=== PATIENT | female | born 1970 | race Caucasian/White ===

== ENCOUNTER 2016-04-04 05:44 | Observation (INO) | payer BC ==
[~2016-04-04] VITALS: Ht 165.1 cm; Wt 73.0 kg
[2016-04-04] MEDS ORDERED: SODIUM CHLORIDE 0.9% 1000ML 1,000 ML IV STA (05:58)
[2016-04-04] MEDS ORDERED: FENTANYL CITRATE INJ 50 MCG/1 ML 2 ML VIAL IV STA (05:58)
--- NOTE | 2016-04-04 06:05 | EMERGENCY ROOM VISIT NOTE ---
History Report prepared by Kamilah: Christofer Salmeron Under the Supervision of: Dr. Sundar Harris M.D. First contact with patient: 05:52 Chief Complaint: RESPIRATORY PROBLEMS Stated Complaint: CAN'T BREATHE Nursing Triage Summary: Pt reports she is having difficulty breathing and has a sharp pain underneath right breast. Hx of vein stripping in left leg last week. Hx of DVT. History of Present Illness The patient is a 46 year old female who presents to the Emergency Room with complaints of respiratory problems that began 3 hours ago. The patient woke up with pain underneath her right breath that is exacerbated with movement and breathing. This is causing her to have shortness of breath. The pain is not radiating to her shoulder or back. She denies any headache, loss of consciousness, or heart palpitations. She denies any history of gallbladder problems, stomach surgery, or stomach ulcers. She is not taking any control or steroids. She has not had a bowel movement in two days. She has had a recent left knee vein stripping surgery. She denies any recent travel or long car trips. She does have a past medical history of a blood clot in her leg that occurred five years ago. Source of History: patient Onset: 3 hours ago Position: other (lungs) Symptom Intensity: moderate Quality: other (shortness of breath) Timing: constant Associated Symptoms: + abdominal pain, + chest pain, No LOC, No back pain, No headache Review of Systems See HPI for pertinent positives & negatives. A total of 10 systems reviewed and were otherwise negative. Family History Patient reports no known family medical history. Social History Smoking Status: Former Smoker Alcohol Use: occasionally Marital Status: Housing Status: lives with family Current/Historical Medications Scheduled Aspirin (Aspirin Ec), 81 MG PO DAILY Cyanocobalamin (Vitamin B-12), 100 MCG PO DAILY Folic Acid (Folvite), 1 MG PO DAILY Multiple Vitamin (Multivitamin), 1 TAB PO DAILY Scheduled PRN Ibuprofen (Motrin), 600 MG PO Q4 PRN for Pain Allergies Uncoded Allergies: RECTAL ANETHESIA (Allergy, Severe, [place] AT AGE 8, 04/04/16) Physical Exam Vital Signs Date Time Temp Pulse Resp B/P Pulse Ox O2 Delivery O2 Flow Rate FiO2 04/04/16 06:35 98 Room Air 04/04/16 06:35 53 20 105/59 98 Room Air 04/04/16 06:34 54 2/13/17 05:49 98 Room Air 04/04/16 05:49 36.4 65 18 101/67 99 Room Air Physical Exam GENERAL: Patient is uncomfortable appearing and in moderate acute distress. HEENT: No acute trauma, normocephalic atraumatic, mucous membranes moist, no nasal congestion, no scleral icterus. NECK: No stridor, no adenopathy, no meningismus, trachea is midline. LUNGS: Dyspneic. Clear to auscultation and equal bilaterally. No wheeze, no rhonchi. HEART: Regular rate and rhythm. No murmurs, rubs, gallops appreciated. ABDOMEN: Soft, mild right upper quadrant tenderness to palpation, bowel sounds positive, no masses appreciated, no peritonitis. BACK: No midline tenderness, no CVA tenderness EXTREMITIES: Normal motion all extremities, no cyanosis, no edema. NEUROLOGIC: Alert and oriented, no acute motor or sensory deficits, no focal weakness, cranial nerves grossly intact. SKIN: No rash, no jaundice, no diaphoresis. Medical Decision & Procedures ER Provider Diagnostic Interpretation: Radiology results are stated below per my review and radiologist interpretation: CTA CHEST: Distended gallbladder. Gallbladder wall thickening. Findings may be due to acute cholecystitis. No evidence of pulmonary embolism. No aortic aneurysm. No pleural effusion. Bilateral atelectasis. Radiologist: Devi Alba M.D. Laboratory Results 04/04/16 05:55 Red Blood Count 4.44, Mean Corpuscular Volume 88.3, Mean Corpuscular Hemoglobin 31.3, Mean Corpuscular Hemoglobin Concent 35.5, Mean Platelet Volume 9.7, Neutrophils (%) (Auto) 44.6, Lymphocytes (%) (Auto) 42.9, Monocytes (%) (Auto) 8.3, Eosinophils (%) (Auto) 3.1, Basophils (%) (Auto) 0.6, Neutrophils # (Auto) 2.91, Lymphocytes # (Auto) 2.80, Monocytes # (Auto) 0.54, Eosinophils # (Auto) 0.20, Basophils # (Auto) 0.04 04/04/16 05:55 Test 04/04/16 05:55 04/04/16 05:59 White Blood Count 6.52 K/uL (4.8-10.8) Red Blood Count 4.44 M/uL (4.2-5.4) Hemoglobin 13.9 g/dL (12.0-16.0) Hematocrit 39.2 % (37-47) Mean Corpuscular Volume 88.3 fL (80-100) Mean Corpuscular Hemoglobin 31.3 pg (25-34) Mean Corpuscular Hemoglobin Concent 35.5 g/dl (32-36) Platelet Count 308 K/uL (130-400) Mean Platelet Volume 9.7 fL (7.4-10.4) Neutrophils (%) (Auto) 44.6 % Lymphocytes (%) (Auto) 42.9 % Monocytes (%) (Auto) 8.3 % Eosinophils (%) (Auto) 3.1 % Basophils (%) (Auto) 0.6 % Neutrophils # (Auto) 2.91 K/uL (1.4-6.5) Lymphocytes # (Auto) 2.80 K/uL (1.2-3.4) Monocytes # (Auto) 0.54 K/uL (0.11-0.59) Eosinophils # (Auto) 0.20 K/uL (0-0.5) Basophils # (Auto) 0.04 K/uL (0-0.2) RDW Standard Deviation 40.5 fL (36.4-46.3) RDW Coefficient of Variation 12.5 % (11.5-14.5) Immature Granulocyte % (Auto) 0.5 % Immature Granulocyte # (Auto) 0.03 K/uL (0.00-0.02) Est Creatinine Clear Calc Drug Dose 77.3 ml/min Estimated GFR () 87.2 Estimated GFR (Non- 75.2 BUN/Creatinine Ratio 10.3 (10-20) Calcium Level 8.7 mg/dl (8.5-10.1) Total Bilirubin 0.6 mg/dl (0.2-1) Direct Bilirubin 0.1 mg/dl (0-0.2) Aspartate Amino Transf (AST/SGOT) 17 U/L (15-37) Alanine Aminotransferase (ALT/SGPT) 39 U/L (12-78) Alkaline Phosphatase 89 U/L (45-117) Total Creatine Kinase 53 U/L (26-192) Creatine Kinase MB 0.6 ng/ml (0.5-3.6) Creatine Kinase MB Ratio 1.1 (0-3.0) Troponin I < 0.015 ng/ml (0-0.045) Total Protein 7.6 gm/dl (6.4-8.2) Albumin 3.6 gm/dl (3.4-5.0) Lipase 136 U/L (73-393) Bedside Hemoglobin 13.9 g/dl (12.0-16.0) Bedside Hematocrit 41 % (37-47) Bedside Sodium 141 mEq/L (135-144) Bedside Potassium 4.1 mEq/L (3.3-5.0) Bedside Chloride 103 mEq/L (101-112) Bedside Total CO2 23 mEq/l (24-31) Anion Gap 20.0 mmol/L (16-25) Bedside Blood Urea Nitrogen 9 mg/dl (7-18) Bedside Creatinine 0.9 mg/dl (0.6-1.3) Bedside Glucose (other) 99 mg/dl (70-99) Bedside Ionized Calcium (Ethan) 1.19 mmol/l (1.12-1.32) Laboratory results as reviewed by me. Medications Administered Medications (Trade) Dose Ordered Sig/Woody Route Start Time Stop Time Status Last Admin Dose Admin Fentanyl Citrate 50 mcg 50 mcg NOW STAT IV 04/04/16 05:58 04/04/16 06:00 DC 04/04/16 06:09 50 MCG Sodium Chloride (Nss 1000ml) 1,000 ml @ 75 mls/hr [id number] STAT IV 04/04/16 05:58 04/04/16 19:17 04/04/16 06:33 75 MLS/HR ECG Indication: SOB/dyspnea Rate (beats per minute): 57 Rhythm: sinus bradycardia Findings: no acute ischemic change, no ectopy ED Course 0552: The patient was evaluated in room B7. A complete history and physical exam was performed. 0558: Sodium Chloride 1000 ml @ 75 mls/hr IV, Fentanyl Citrate 50 mcg IV 0630: The patient feels much better. She declines any further pain medications. 0715: Upon reevaluation, the patient is resting. Discussed results and treatment plan with the patient. She verbalized understanding and agreement with the treatment plan. The patient will be evaluated by Dr. Weiss - General Surgery, for further management. Medical Decision Differential: PE, Cholecystitis, Gallbladder disfunction, Hepatic Disfunction, Gastritis/PUD, Renal Colic, Pancreatitis, ACS, Aortic Pathology, amongst other pathologies entertained. 46 yr old female with right lower pleuritic chest pain radiating to right mid chest/back and RUQ. She has DVT history and just had left leg vein striping surgery. Furthermore, per nurse, (and unknown to patient's daughter in room) she has breast cancer recently diagnosed. Otherwise vitals look OK. With her history clearly will need PE rule out which was done. Labs look OK. Given Fentanyl with improvement in pain. CT reveals normal pulm vasculature, though there does appear to be acute cholecystitis. Stable and feeling much improved. Mefoxin ordered. US Gallbladder ordered for further evaluation. Dr Weiss aware and will evaluate. Consults Time Called: 0700 Consulting Physician: Dr. Weiss - General Surgery Returned Call: 0710 They will be evaluating the patient for further management. Impression Primary Impression: Acute cholecystitis Scribe Attestation The scribe's documentation has been prepared under my direction and personally reviewed by me in its entirety. I confirm that the note above accurately reflects all work, treatment, procedures, and medical decision making performed by me. Departure Information Dispostion Being Evaluated By Surgeon Referrals Velma Maradiaga (PCP) Patient Instructions [facility]
[2016-04-04 06:10] LABS: BASO % 0.6 %; BASO ABS # 0.04 K/uL (0-0.2); COMPLETE YES; EOS % 3.1 %; HEMATOCRIT 39.2 % (37-47); IG% 0.5 %; LYMPH % 42.9 %; MEAN CELL VOLUME 88.3 fL (80-100); MEAN CORPUSCULAR HEMOGLOBIN 31.3 pg (25-34); MEAN CORPUSCULAR HGB CONC 35.5 g/dl (32-36); MEAN PLATELET VOLUME 9.7 fL (7.4-10.4); MONO % 8.3 %; NEUT % 44.6 %; PLATELET COUNT 308 K/uL (130-400); RED BLOOD COUNT 4.44 M/uL (4.2-5.4); WHITE BLOOD COUNT 6.52 K/uL (4.8-10.8)
[2016-04-04] MEDS ORDERED: FOLI1TAB7 PO (06:14)
[2016-04-04] MEDS ORDERED: MULTTAB58 PO (06:14)
[2016-04-04] MEDS ORDERED: ASPI81TA28 PO (06:14)
[2016-04-04] MEDS ORDERED: CYAN100T PO (06:14)
[2016-04-04 06:15] LABS: ISTAT CREATININE 0.9 mg/dl (0.6-1.3); ISTAT HEMOGLOBIN 13.9 g/dl (12.0-16.0); ISTAT IONIZED CALCIUM 1.19 mmol/l (1.12-1.32)
[2016-04-04] MEDS ORDERED: OPTIRAY 320 IV PRN (06:15)
[2016-04-04] MEDS ORDERED: IBUP-1450 PO (06:15)
[2016-04-04 06:27] LABS: ALT/SGPT 39 U/L (12-78); AST/SGOT 17 U/L (15-37); BLOOD UREA NITROGEN 9 mg/dl (7-18); BUN/CREATININE RATIO 10.3 (10-20); CALCIUM 8.7 mg/dl (8.5-10.1); CARBON DIOXIDE 25 mmol/L (21-32); CHLORIDE 107 mmol/L (98-107); CREATININE 0.92 mg/dl (0.60-1.20); GLUCOSE 92 mg/dl (70-99); POTASSIUM 4.1 mmol/L (3.5-5.1); SODIUM 141 mmol/L (136-145)
[2016-04-04 06:32] LABS: ALKALINE PHOSPHATASE 89 U/L (45-117); CKMB/CK RATIO 1.1 (0-3.0)
[2016-04-04] MEDS ORDERED: CEFOXITIN SOD 2 GM VIAL IV STA (07:16)
--- NOTE | 2016-04-04 07:29 | DIAGNOSTIC IMAGING REPORT ---
CT ANGIOGRAPHY OF THE CHEST, PULMONARY EMBOLUS PROTOCOL CLINICAL HISTORY: Right lower chest pleuritic pain. Recent surgery. History of breast cancer. COMPARISON STUDY: No previous studies for comparison. TECHNIQUE: Following IV administration of 93 mL of [id number]-[id number], helical axial images of the chest were obtained utilizing the pulmonary embolus protocol. Maximal intensity projections and sagittal and coronal reformats were viewed on an independent 3D workstation. IV contrast was administered without complication. CT DOSE: 276.14 mGy.cm FINDINGS: No pulmonary emboli are identified. There is no evidence of thoracic dissection. The size of the heart is normal. There is no pericardial effusion. No enlarged axillary, mediastinal or hilar lymph nodes are present. Linear and groundglass opacities within the lungs suggest atelectasis. There is no consolidation to suggest pneumonia. There is no pneumothorax or pleural effusion. No suspicious osseous lesions are present. A radiodensity within the upper outer quadrant right breast could reflect a biopsy clip. A 2 mm left renal calculus is noted. Visualized portions of the upper abdomen demonstrate possible gallbladder distention with equivocal gallbladder wall thickening. IMPRESSION: 1. No pulmonary emboli identified. 2. No acute findings within the chest. 3. Equivocal gallbladder distention and wall thickening, partially imaged on this exam. A right upper quadrant ultrasound could be obtained. Electronically signed by: Jim Canada M.D. 04/04/2016 7:27 AM Dictated Date/Time: 04/04/2016 7:19 AM
--- NOTE | 2016-04-04 09:09 | DIAGNOSTIC IMAGING REPORT ---
Right upper quadrant ultrasound GALLBLADDER-ABD LIMITED CLINICAL HISTORY: Cholecystitis gallstone TECHNIQUE: Ultrasound COMPARISON STUDY: None FINDINGS: Multiple gallstones within the gallbladder lumen. Normal gallbladder wall. No pericholecystic fluid. Extra hepatic common mild duct is 5 mm. Right kidney negative for hydronephrosis. IMPRESSION: Gallstones. Normal gallbladder ducts. Electronically signed by: Kevni Ventura M.D. 04/04/2016 9:08 AM Dictated Date/Time: 04/04/2016 9:07 AM
[2016-04-04] MEDS: FENTANYL CITRATE INJ 50 MCG/1 ML 2 ML VIAL IV PRN ×3 (09:10→13:37)
[2016-04-04] MEDS ORDERED: ONDANSETRON INJ 2 MG/ML 2 ML VIAL IV PRN (12:30)
[2016-04-04] MEDS ORDERED: OXYCODONE/ACETAMINOPHEN 5-325 TAB PO PRN (12:30)
[2016-04-04 13:12] VITALS: BP 125/62; PULSE 87; TEMP 36.4; O2SAT 98; Ht 165.1 cm; Wt 73.0 kg
[2016-04-04] MEDS ORDERED: IV FLUIDS COMPLETED PRN (14:00)
[2016-04-04 14:15] VITALS: BP 103/67; PULSE 53; TEMP 36.5; O2SAT 98
--- NOTE | 2016-04-04 14:21 | History and Physical ---
History & Physical Date & Time of Service: Apr 04, 2016 at 14:10 Chief Complaint: Can't Breathe Primary Care Physician: Irma Early PA-C History of Present Illness Source: patient Kandace presented to [facility] emergency department early this morning with complaint of right upper abdominal pain and difficulty breathing. States the pain started at 3 am this morning and by 5 am she was unable to take a deep breath because of the pain. Denies of any previous similar episodes of pain. Denies of any radiation of pain. Denies of any history of similar abdominal pain or issues with her gallbladder. Denies of any fever, chills, nausea, vomiting, or diarrhea. She had labs including cbc, bmp, and lfts. NO leukocytosis and LFTS and bilirubin within normal limits. She has a history of DVT about 5 years ago and recent left leg vein stripping procedure last week. She had a CT angiography of the chest which showed probable gallbladder wall distention and wall thickening. She then underwent an ultrasound which showed no gallbladder wall thickening, pericholecystic fluid, or signs of acute cholecystitis however she did have gallstones present. Family History Patient reports no known family medical history. Social History Smoking Status: Former Smoker Marital Status: Housing status: lives with family Multi-Drug Resistant Organisms History of MDRO: No Allergies Uncoded Allergies: RECTAL ANETHESIA (Allergy, Severe, [place] AT AGE 8, 04/04/16) Home Medications Scheduled Aspirin (Aspirin Ec), 81 MG PO DAILY Cyanocobalamin (Vitamin B-12), 100 MCG PO DAILY Folic Acid (Folvite), 1 MG PO DAILY Multiple Vitamin (Multivitamin), 1 TAB PO DAILY Scheduled PRN Ibuprofen (Motrin), 600 MG PO Q4 PRN for Pain Review of Systems Constitutional: No chills, No fever, No sweats Respiratory: + dyspnea on exertion, + shortness of breath (on presentation to the emergency room, resolved now.) Cardiovascular: No chest pain, No orthopnea Abdomen: + pain (RUQ), No diarrhea, No nausea, No vomiting Neurologic: No weakness Endocrine: No fatigue Physical Exam Vital Signs Date Time Temp Pulse Resp B/P Pulse Ox O2 Delivery O2 Flow Rate FiO2 04/04/16 13:37 102/62 04/04/16 13:12 36.4 87 18 125/62 98 Room Air 04/04/16 12:06 125/62 04/04/16 11:04 56 18 106/68 04/04/16 09:14 101/71 04/04/16 06:35 98 Room Air 04/04/16 06:35 53 20 105/59 98 Room Air 04/04/16 06:34 54 04/04/16 05:49 98 Room Air 04/04/16 05:49 36.4 65 18 101/67 99 Room Air General Appearance: WD/WN, no apparent distress Head: normocephalic, atraumatic Eyes: normal inspection, sclerae normal ENT: hearing grossly normal Neck: supple, no adenopathy Respiratory/Chest: chest non-tender, lungs clear, normal breath sounds, no respiratory distress, no accessory muscle use Cardiovascular: regular rate, rhythm, no edema, no murmur Abdomen/GI: soft, no organomegaly, + tenderness (RUQ, positive quinteros's sign), + guarding (RUQ) Back: normal inspection, no CVA tenderness, no muscle spasm Extremities/Musculoskelatal: normal inspection Neurologic/Psych: alert, normal mood/affect, oriented x 3 Skin: normal color, warm/dry, no rash Diagnostics Laboratory Results Results Past 24 Hours Test 04/04/16 05:55 04/04/16 05:59 Range/Units White Blood Count 6.52 4.8-10.8 K/uL Red Blood Count 4.44 4.2-5.4 M/uL Hemoglobin 13.9 12.0-16.0 g/dL Hematocrit 39.2 37-47 % Mean Corpuscular Volume 88.3 80-100 fL Mean Corpuscular Hemoglobin 31.3 25-34 pg Mean Corpuscular Hemoglobin Concent 35.5 32-36 g/dl Platelet Count 308 130-400 K/uL Mean Platelet Volume 9.7 7.4-10.4 fL Neutrophils (%) (Auto) 44.6 % Lymphocytes (%) (Auto) 42.9 % Monocytes (%) (Auto) 8.3 % Eosinophils (%) (Auto) 3.1 % Basophils (%) (Auto) 0.6 % Neutrophils # (Auto) 2.91 1.4-6.5 K/uL Lymphocytes # (Auto) 2.80 1.2-3.4 K/uL Monocytes # (Auto) 0.54 0.11-0.59 K/uL Eosinophils # (Auto) 0.20 0-0.5 K/uL Basophils # (Auto) 0.04 0-0.2 K/uL RDW Standard Deviation 40.5 36.4-46.3 fL RDW Coefficient of Variation 12.5 11.5-14.5 % Immature Granulocyte % (Auto) 0.5 % Immature Granulocyte # (Auto) 0.03 0.00-0.02 K/uL Sodium Level 141 136-145 mmol/L Potassium Level 4.1 3.5-5.1 mmol/L Chloride Level 107 98-107 mmol/L Carbon Dioxide Level 25 21-32 mmol/L Anion Gap 9.0 20.0 16-25 mmol/L Blood Urea Nitrogen 9 7-18 mg/dl Creatinine 0.92 0.60-1.20 mg/dl Est Creatinine Clear Calc Drug Dose 77.3 ml/min Estimated GFR () 87.2 Estimated GFR (Non- 75.2 BUN/Creatinine Ratio 10.3 10-20 Random Glucose 92 70-99 mg/dl Calcium Level 8.7 8.5-10.1 mg/dl Total Bilirubin 0.6 0.2-1 mg/dl Direct Bilirubin 0.1 0-0.2 mg/dl Aspartate Amino Transf (AST/SGOT) 17 15-37 U/L Alanine Aminotransferase (ALT/SGPT) 39 12-78 U/L Alkaline Phosphatase 89 45-117 U/L Total Creatine Kinase 53 26-192 U/L Creatine Kinase MB 0.6 0.5-3.6 ng/ml Creatine Kinase MB Ratio 1.1 0-3.0 Troponin I < 0.015 0-0.045 ng/ml Total Protein 7.6 6.4-8.2 gm/dl Albumin 3.6 3.4-5.0 gm/dl Lipase 136 73-393 U/L Bedside Hemoglobin 13.9 12.0-16.0 g/dl Bedside Hematocrit 41 37-47 % Bedside Sodium 141 135-144 mEq/L Bedside Potassium 4.1 3.3-5.0 mEq/L Bedside Chloride 103 101-112 mEq/L Bedside Total CO2 23 24-31 mEq/l Bedside Blood Urea Nitrogen 9 7-18 mg/dl Bedside Creatinine 0.9 0.6-1.3 mg/dl Bedside Glucose (other) 99 70-99 mg/dl Bedside Ionized Calcium (Ethan) 1.19 1.12-1.32 mmol/l Diagnostic Radiology US showing gallstones no gallbladder wall thickening, no pericholecystic fluid. NO evidence of acute cholecystitis CTA of the chest showed probable gallbladder wall thickening or gallbladder distention, no evidence of pulmonary embolism. Impression Assessment and Plan RUQ abdominal pain Symptomatic Cholelithiasis - afebrile - no leukocytosis - CMP and Bilirubin within normal limits Plan: Will admit patient for observation to see if her pain improves If she continues to have pain or pain increases will plan on laparoscopic cholecystectomy tomorrow Start IV fluids, IV pain medication, IV cefoxitin, and IV Zofran May have clear liquids NPO after midnight Advanced Directives Existing Living Will: No Existing Power of Sfdc Architect: No VTE Prophylaxis VTE Risk Assessment Done? Y/N: Yes Risk Level: Low Given or contraindicated: SCD's Social Service Consult None Apply Note I have 9nterviewed and examined this patient an I agree with the above note. She has cholelithiasis and RUQ pain with a normal WBC, LFT and no other abnormalities of the gallbladder on ultrasound. Offered surgery versus operations and she has chose observation.
[2016-04-04] MEDS: CEFOXITIN IV 2,000 MG in DEXTROSE 5% 50ML 50 ML IV SCH ×2 (15:38→22:02)
[2016-04-04] MEDS: D5W AND 1/2NSS + 20MEQ KCL 1,000 ML IV SCH (15:38)
[2016-04-04] MEDS: MoRPHine SULFATE 4 MG/ML 1 ML CARP\\VIAL IV PRN ×2 (15:39→20:12)
[2016-04-04 23:50] VITALS: BP 88/55; PULSE 53; TEMP 36.7; O2SAT 96
[2016-04-05] VITALS (9 sets, daily range): BP systolic 92–107; BP diastolic 54–70; PULSE 51–68; TEMP 36.5–36.9; O2SAT 96–98
[2016-04-05] MEDS ORDERED: ACETAMINOPHEN 325 MG TAB PO PRN (00:30)
[2016-04-05] MEDS ORDERED: NURSING VERBAL MED ORDER ONE (00:30)
[2016-04-05] MEDS: CEFOXITIN IV 2,000 MG in DEXTROSE 5% 50ML 50 ML IV SCH ×4 (02:30→20:33)
[2016-04-05] MEDS: D5W AND 1/2NSS + 20MEQ KCL 1,000 ML IV SCH ×2 (02:31→19:18)
[2016-04-05 07:09] LABS: HEMATOCRIT 36.8 % (37-47); MEAN CELL VOLUME 91.3 fL (80-100); MEAN CORPUSCULAR HEMOGLOBIN 30.8 pg (25-34); MEAN CORPUSCULAR HGB CONC 33.7 g/dl (32-36); PLATELET COUNT 280 K/uL (130-400); RED BLOOD COUNT 4.03 M/uL (4.2-5.4); WHITE BLOOD COUNT 5.13 K/uL (4.8-10.8)
[2016-04-05] MEDS: MoRPHine SULFATE 4 MG/ML 1 ML CARP\\VIAL IV PRN ×5 (07:09→23:40)
[2016-04-05 07:36] LABS: BUN/CREATININE RATIO 7.2 (10-20); CALCIUM 8.6 mg/dl (8.5-10.1); CREATININE 0.9 mg/dl (0.60-1.20)
[2016-04-05 07:39] LABS: ALB/GLOB RATIO 0.9 (0.9-2)
--- NOTE | 2016-04-05 08:10 | Surgery Progress Note ---
Surgery Progress Note Date of Service Apr 05, 2016. Subjective Post OP Day: HD # 1 + diet (tolerated clear liquids), + nausea, No SOB, No chest pain, No vomiting Objective Vital Signs: Date Time Temp Pulse Resp B/P Pulse Ox O2 Delivery O2 Flow Rate FiO2 04/05/16 00:10 Room Air 04/05/16 00:10 103/68 04/04/16 23:50 36.7 53 16 88/55 96 Room Air 04/04/16 15:30 Room Air 04/04/16 14:15 36.5 53 18 103/67 98 Room Air 04/04/16 14:15 98 Room Air 04/04/16 13:37 102/62 04/04/16 13:12 36.4 87 18 125/62 98 Room Air 04/04/16 12:06 125/62 04/04/16 11:04 56 18 106/68 04/04/16 09:14 101/71 General Appearance: WD/WN, no apparent distress Head: normocephalic, atraumatic Respiratory/Chest: chest non-tender, lungs clear, normal breath sounds, no respiratory distress, no accessory muscle use Cardiovascular: regular rate, rhythm, no murmur Abdomen: non distended, soft, no organomegaly, + guarding (RUQ), + rebound (RUQ ), + tenderness (RUQ, + Duran's sign) Extremities: normal range of motion Laboratory Results: Results Past 24 Hours Test 04/05/16 06:40 Range/Units White Blood Count 5.13 4.8-10.8 K/uL Red Blood Count 4.03 4.2-5.4 M/uL Hemoglobin 12.4 12.0-16.0 g/dL Hematocrit 36.8 37-47 % Mean Corpuscular Volume 91.3 80-100 fL Mean Corpuscular Hemoglobin 30.8 25-34 pg Mean Corpuscular Hemoglobin Concent 33.7 32-36 g/dl RDW Standard Deviation 42.5 36.4-46.3 fL RDW Coefficient of Variation 12.7 11.5-14.5 % Platelet Count 280 130-400 K/uL Mean Platelet Volume 10.0 7.4-10.4 fL Sodium Level 142 136-145 mmol/L Potassium Level 4.0 3.5-5.1 mmol/L Chloride Level 107 98-107 mmol/L Carbon Dioxide Level 25 21-32 mmol/L Anion Gap 10.0 3-11 mmol/L Blood Urea Nitrogen 7 7-18 mg/dl Creatinine 0.90 0.60-1.20 mg/dl Est Creatinine Clear Calc Drug Dose 79.0 ml/min Estimated GFR () 89.5 Estimated GFR (Non- 77.2 BUN/Creatinine Ratio 7.2 10-20 Random Glucose 87 70-99 mg/dl Calcium Level 8.6 8.5-10.1 mg/dl Total Bilirubin 0.7 0.2-1 mg/dl Aspartate Amino Transf (AST/SGOT) 14 15-37 U/L Alanine Aminotransferase (ALT/SGPT) 29 12-78 U/L Alkaline Phosphatase 79 45-117 U/L Total Protein 6.7 6.4-8.2 gm/dl Albumin 3.1 3.4-5.0 gm/dl Globulin 3.6 2.5-4.0 gm/dl Albumin/Globulin Ratio 0.9 0.9-2 Assessment & Plan Symptomatic Cholelithiasis - RUQ pain + Duran's sign - no leukocytosis - CBC, CMP including LFTS and Bilirubin within normal limits - Pain moderate 6/10 with pain medication Plan:
--- NOTE | 2016-04-05 08:37 | Surgery Progress Note ---
Surgery Progress Note Date of Service Apr 05, 2016. Subjective No nausea, No vomiting Pain persists and is unchanged in intensity. Objective Vital Signs: Date Time Temp Pulse Resp B/P Pulse Ox O2 Delivery O2 Flow Rate FiO2 04/05/16 07:00 36.9 51 16 97/63 97 Room Air 04/05/16 00:10 Room Air 04/05/16 00:10 103/68 04/04/16 23:50 36.7 53 16 88/55 96 Room Air 04/04/16 15:30 Room Air 04/04/16 14:15 36.5 53 18 103/67 98 Room Air 04/04/16 14:15 98 Room Air 04/04/16 13:37 102/62 04/04/16 13:12 36.4 87 18 125/62 98 Room Air 04/04/16 12:06 125/62 04/04/16 11:04 56 18 106/68 04/04/16 09:14 101/71 Abdomen: normal bowel sounds, soft, + tenderness Laboratory Results: Results Past 24 Hours Test 04/05/16 06:40 Range/Units White Blood Count 5.13 4.8-10.8 K/uL Red Blood Count 4.03 4.2-5.4 M/uL Hemoglobin 12.4 12.0-16.0 g/dL Hematocrit 36.8 37-47 % Mean Corpuscular Volume 91.3 80-100 fL Mean Corpuscular Hemoglobin 30.8 25-34 pg Mean Corpuscular Hemoglobin Concent 33.7 32-36 g/dl RDW Standard Deviation 42.5 36.4-46.3 fL RDW Coefficient of Variation 12.7 11.5-14.5 % Platelet Count 280 130-400 K/uL Mean Platelet Volume 10.0 7.4-10.4 fL Sodium Level 142 136-145 mmol/L Potassium Level 4.0 3.5-5.1 mmol/L Chloride Level 107 98-107 mmol/L Carbon Dioxide Level 25 21-32 mmol/L Anion Gap 10.0 3-11 mmol/L Blood Urea Nitrogen 7 7-18 mg/dl Creatinine 0.90 0.60-1.20 mg/dl Est Creatinine Clear Calc Drug Dose 79.0 ml/min Estimated GFR () 89.5 Estimated GFR (Non- 77.2 BUN/Creatinine Ratio 7.2 10-20 Random Glucose 87 70-99 mg/dl Calcium Level 8.6 8.5-10.1 mg/dl Total Bilirubin 0.7 0.2-1 mg/dl Aspartate Amino Transf (AST/SGOT) 14 15-37 U/L Alanine Aminotransferase (ALT/SGPT) 29 12-78 U/L Alkaline Phosphatase 79 45-117 U/L Total Protein 6.7 6.4-8.2 gm/dl Albumin 3.1 3.4-5.0 gm/dl Globulin 3.6 2.5-4.0 gm/dl Albumin/Globulin Ratio 0.9 0.9-2 Assessment & Plan Pain has not resolved with conservative management. We again discussed removing her gallbladder and she has agreed. I explained the laparoscopic procedure and the possible need to convert to an open procedure. I explained the possible complications and answered her questions. She has signed a consent form.
[2016-04-05] MEDS ORDERED: GLYCOPYRROLATE INJ 0.2 MG/ML VIAL ONE (13:43)
[2016-04-05] MEDS ORDERED: ONDANSETRON INJ 2 MG/ML 2 ML VIAL ONE ×2 (13:43→13:44)
[2016-04-05] MEDS ORDERED: NEOSTIGMINE METHYLSULFATE 5 MG/5 ML SYR ONE (13:43)
[2016-04-05] MEDS ORDERED: ROCURONIUM BROMIDE 10 MG/ML 5 ML VIAL ONE (13:43)
[2016-04-05] MEDS ORDERED: FENTANYL CITRATE INJ 50 MCG/1 ML 2 ML VIAL ONE (13:43)
[2016-04-05] MEDS ORDERED: MIDAZOLAM HCL 1 MG/ML 2ML VIAL ONE ×2 (13:43→17:04)
[2016-04-05] MEDS ORDERED: LIDOCAINE HCL 2% 2 ML VIAL (20MG/ML) ONE (13:43)
[2016-04-05] MEDS ORDERED: PROPOFOL IV EMULSION 10 MG/ML 20 ML VIAL IV ONE (13:43)
[2016-04-05] MEDS ORDERED: HEPARIN SOD (PORCINE) 1000 UNIT/ML 10 ML VIAL ONE (13:48)
[2016-04-05] MEDS ORDERED: CEFAZOLIN SOD 1 GM VIAL ONE (13:48)
[2016-04-05] MEDS ORDERED: BUPIVACAINE 0.5 % 5 MG/1 ML MPF 30ML VIAL ONE (13:49)
[2016-04-05] MEDS ORDERED: ONDANSETRON INJ 2 MG/ML 2 ML VIAL IV PRN (14:30)
[2016-04-05] MEDS ORDERED: EpHEDrine SULFATE INJ 50 MG/ML AMP IV PRN (14:30)
[2016-04-05] MEDS ORDERED: PHENYLEPHRINE 100MCG/ML 5ML SYR IV PRN (14:30)
[2016-04-05] MEDS ORDERED: ATROPINE SULFATE 0.1 MG/ML 5ML SYR IV PRN (14:30)
[2016-04-05] MEDS ORDERED: [UNRECOGNIZED DRUG - OTHER] IRRIG ONE (15:07)
[2016-04-05] MEDS ORDERED: NS IRRIG ONE (15:07)
[2016-04-05] MEDS ORDERED: ANCEF IRRIG ONE (15:07)
[2016-04-05] MEDS ORDERED: BUPIVACAINE 0.5% - PF INJ ONE (15:11)
[2016-04-05] MEDS ORDERED: KETOROLAC TROMETHAMINE 30 MG/ML VIAL ONE (15:27)
--- NOTE | 2016-04-05 16:20 | [facility] Post Operative Brief Note ---
Immediate Operative Summary Operative Date Apr 05, 2016. Pre-Operative Diagnosis CHOLILITHIASIS Post-Operative Diagnosis CHOLILITHIASIS Procedure(s) Performed LAPRASCIOPIC CHOLECYSTECTOMY Surgeon DR Jeanine GARCIA Mining Speculator Surgeon(s) CHAO DEL ANGEL PA-C Estimated Blood Loss 15ml Findings See dictation Specimens GALLBLADDER Drains None Anesthesia General Complication(s) None Disposition Recovery Room / PACU
[2016-04-05] MEDS: HYDROmorphone INJ 2 MG/ML SYR/VIAL IV PRN ×2 (16:50→16:55)
--- NOTE | 2016-04-05 17:29 | Anesthesiology Progress Note ---
Anesthesia Post Op Note Date & Time Apr 05, 2016 at 17:29 Vital Signs Pain Intensity: 3 Vital Signs Past 12 Hours Date Time Temp Pulse Resp B/P Pulse Ox O2 Delivery O2 Flow Rate FiO2 04/05/16 17:13 123/71 04/05/16 17:12 36.5 60 18 123/71 100 Nasal Cannula 2 04/05/16 17:10 56 14 100 04/05/16 17:10 55 14 04/05/16 17:08 125/74 04/05/16 17:05 63 16 99 04/05/16 17:05 62 16 04/05/16 17:03 140/81 04/05/16 17:00 63 20 100 04/05/16 17:00 64 20 04/05/16 16:58 120/78 04/05/16 16:55 57 13 04/05/16 16:55 57 13 100 04/05/16 16:54 58 17 100 04/05/16 16:54 58 17 04/05/16 16:54 58 17 04/05/16 16:54 58 17 100 04/05/16 16:53 124/70 04/05/16 16:53 124/70 04/05/16 16:49 55 15 100 04/05/16 16:49 55 15 100 04/05/16 16:49 56 15 04/05/16 16:49 56 15 04/05/16 16:48 139/77 04/05/16 16:48 139/77 04/05/16 16:44 61 14 04/05/16 16:44 61 14 100 04/05/16 16:44 61 14 100 04/05/16 16:44 61 14 04/05/16 16:43 130/78 04/05/16 16:43 130/78 04/05/16 16:39 58 14 04/05/16 16:39 58 14 100 04/05/16 16:39 58 14 04/05/16 16:39 58 14 100 04/05/16 16:38 125/77 04/05/16 16:38 125/77 04/05/16 16:34 58 17 100 04/05/16 16:34 59 17 04/05/16 16:34 58 17 100 04/05/16 16:34 59 17 04/05/16 16:33 128/77 04/05/16 16:33 128/77 04/05/16 16:29 60 5 04/05/16 16:29 60 5 04/05/16 16:29 59 5 99 04/05/16 16:29 36.3 77 10 132/87 100 Nasal Cannula 2 04/05/16 16:29 59 5 99 04/05/16 14:06 36.8 62 16 102/68 98 Room Air 04/05/16 07:50 Room Air 04/05/16 07:00 36.9 51 16 97/63 97 Room Air Notes Mental Status: alert / awake / arousable, participated in evaluation Pt Amnestic to Procedure: Yes Nausea / Vomiting: adequately controlled Pain: adequately controlled Airway Patency, RR, SpO2: stable & adequate BP & HR: stable & adequate Hydration State: stable & adequate Anesthetic Complications: no major complications apparent
--- NOTE | 2016-04-05 20:08 | EMERGENCY ROOM VISIT NOTE ---
ED Visit Note First contact with patient: 10:17 I received this patient in signout at the change of shift from Dr. Sundar Harris, pending ultrasound of the right upper quadrant. This study is significant for cholelithiasis without evidence of acute cholecystitis. Patient 's laboratory work was reviewed. She did require several doses of IV fentanyl for pain control. On reevaluation, the patient was painful to palpation of the right upper quadrant. Dr. Weiss in general surgery was contacted and evaluated the patient in the emergency department. He has agreed to observe the patient to determine if surgical intervention is needed at this time. Patient is agreeable to this plan. Please refer to Dr. Harris's notes for further details of the history, physical and visit. Diagnosis: Symptomatic cholelithiasis.
--- NOTE | 2016-04-06 00:04 | OPERATIVE REPORT ---
DATE OF OPERATION: 04/04/2016 PREOPERATIVE DIAGNOSIS: Cholelithiasis. POSTOPERATIVE DIAGNOSES: Cholelithiasis, acute cholecystitis. PROCEDURE: Laparoscopic cholecystectomy. SURGEON: Kevin Weiss MD CLINICAL INFORMATICS PHYSICIAN: Lexi Yan PA-C FINDINGS: The gallbladder was dilated. There were multiple stones within the lumen. There was a significant amount of edema surrounding the gallbladder. There were some adhesions of the omentum and of the duodenum to the infundibulum area of the gallbladder. Those were flimsy. The cystic duct was not dilated. The liver was of normal size and contour. The visible bowel appeared normal. There was no evidence of gangrene of the gallbladder and there was no perforation. TECHNIQUE: The patient was given a general anesthetic and the area was prepped and draped in the usual sterile fashion. Transverse incision was made below the umbilicus through a scar from her previous laparoscopic procedure. It was carried down through the subcutaneous tissue to the fascia, which was grasped with 2 John clamps and incised between. The peritoneum was identified, incised, and the introducer was placed bluntly. The abdomen was then insufflated to a pressure of 15 mmHg with carbon dioxide. The upper midline, midclavicular and anterior axillary introducers were placed under direct vision through small skin incisions. Traction was placed on the gallbladder and the adhesions were taken down, using blunt dissection. They were fairly flimsy. The duodenum was dissected away from the gallbladder bluntly with ease. That allowed me to grasp the infundibulum and elevate it and divide the attachments to the liver, first on the lateral side and then towards the medial side, opening the triangle of Calot. Further dissection was carried out. The edema provided some identification of the spaces and I was eventually able to identify the cystic duct. I dissected the infundibulum away from the liver on the lateral, then the medial side, allowing for better mobility. Further lymphatics and connective tissue were peeled away from the infundibulum and the cystic duct until I was able to identify the cystic duct gallbladder junction. I established a plane behind the cystic duct to place 3 clips proximally, one near the gallbladder that was divided. That allowed me to perform further dissection of the infundibulum away from the liver, working from inferior to superior, where I then encountered the cystic artery. That was isolated, clamped twice proximally, once near the gallbladder and divided. There was one posterior branch of the artery, a large lymphatic, which was then isolated and divided between clips. The gallbladder was then peeled off the liver bed using electrocautery. It was placed into an Endobag and brought out through the upper midline incision, where I had to open the gallbladder on the outside and extract stones in order to remove the gallbladder within the bag, but that was able to be accomplished. One of the graspers had created a hole in the gallbladder. There was no loss of stones, but there was some bile leakage. The subdiaphragmatic and subhepatic spaces were irrigated and the irrigation was removed and that was repeated until the return was clear. The gallbladder bed of the liver was inspected. There were 2 areas of some oozing that was easily controlled with cautery. The previously placed clips were intact. Further irrigation was performed and the gallbladder bed of the liver was again inspected and there was no further bleeding. Gas was allowed to escape and the introducers were removed. The fascia of the umbilical and upper midline introducer sites was closed with interrupted 0 Vicryl and skin of all the incisions was closed with 4-0 Monocryl in either an interrupted or running subcuticular fashion. The skin was anesthetized with 0.5% Marcaine. The skin was cleansed, dried, benzoin placed and Steri-Strips applied. The estimated blood loss was 15 mL. Sponge, needle and instrument counts were correct x2 prior to closure. The patient tolerated the surgical procedure without complication and was transferred to recovery. I attest to the content of the Intraoperative Record and any orders documented therein. Any exceptio ns are noted below.
[2016-04-06] MEDS: CEFOXITIN IV 2,000 MG in DEXTROSE 5% 50ML 50 ML IV SCH ×2 (03:02→07:48)
[2016-04-06] MEDS: MoRPHine SULFATE 4 MG/ML 1 ML CARP\\VIAL IV PRN ×3 (03:02→07:49)
[2016-04-06 03:59] VITALS: BP 94/58; PULSE 58; TEMP 36.8; O2SAT 96
[2016-04-06] MEDS: D5W AND 1/2NSS + 20MEQ KCL 1,000 ML IV SCH (05:13)
[2016-04-06 07:43] VITALS: BP 87/54; PULSE 58; TEMP 36.7; O2SAT 96
[2016-04-06 07:45] VITALS: BP 90/56; PULSE 52
[2016-04-06] MEDS ORDERED: IBUPROFEN 600 MG TAB PO PRN (08:45)
--- NOTE | 2016-04-06 08:47 | Discharge Instructions ---
Discharge Instructions Admission Reason for Admission: Cholelithiasis, Ruq Abdominal Pain Discharge Discharge Diagnosis / Problem: S/p laparoscopic Cholecystectomy Discharge Goals Goal(s): Decrease discomfort, Improve function Activity Recommendations Activity Limitations: per Instructions/Follow-up section Lifting Limitations: no more than 10 pounds Exercise/Sports Limitations: gradually increase as tolerated (walking is encouraged, no strenous activity until cleared by surgeon) May Resume Sexual Activity: when tolerated Shower/Bathe: tomorrow, keep incision dry Driving or Machine Use: You may drive if you are NOT taking any narcotic pain medication or when you are pain free . Instructions / Follow-Up Instructions / Follow-Up You May shower Keep steri strips on incisions for one week and then remove, they may fall off before that is okay Restrictions as above Follow-up in surgical office with Dr. Weiss in 2 weeks Office number is [phone], please call to make a follow-up appointment Current Hospital Diet Patient's current hospital diet: Regular Diet Discharge Diet Recommended Diet: Regular Diet Fluid Restriction: None Procedures Procedures Performed: LAPRASCIOPIC CHOLECYSTECTOMY Pending Studies Studies pending at discharge: no Medical Emergencies . Who to Call and When: Medical Emergencies: If at any time you feel your situation is an emergency, please call 911 immediately. . Non-Emergent Contact Non-Emergency issues call your: Primary Care Provider, Surgeon Call Non-Emergent contact if: temperature is above 101.5, your pain is not controlled, your pain is worsening, wound has increased drainage, wound has increased redness, wound has increased pain . "Provider Documentation" section prepared by Lexi Yan. VTE Core Measure Inpt VTE Proph given/why not?: SCD's [place] Drug Monitoring Program Drug Monitoring Findings: Patient does not like narcotic and wished to take Ibuprofen as needed for pain.
--- NOTE | 2016-04-06 08:52 | Surgery Progress Note ---
Surgery Progress Note Date of Service Apr 06, 2016. Subjective Post OP Day: HD # 2 + ambulating, + diet, + feeling well, + pain controlled (pre-opeartive pain has resolved and now having soreness from surgery, controlled with morphine), No SOB , No chest pain, No nausea, No vomiting Objective Vital Signs: Date Time Temp Pulse Resp B/P Pulse Ox O2 Delivery O2 Flow Rate FiO2 04/06/16 07:45 52 90/56 04/06/16 07:43 36.7 58 18 87/54 96 Room Air 04/06/16 03:59 36.8 58 16 94/58 96 Room Air 04/05/16 23:35 Room Air 04/05/16 23:30 36.5 57 16 104/70 96 Room Air 04/05/16 21:26 36.6 58 18 92/54 96 04/05/16 20:24 36.9 68 18 94/63 97 Nasal Cannula 1.0 04/05/16 19:27 36.7 58 18 104/66 96 Nasal Cannula 1.0 04/05/16 18:29 36.6 56 18 107/68 98 Nasal Cannula 2.0 04/05/16 18:00 97 Nasal Cannula 2.0 04/05/16 18:00 Nasal Cannula 2.0 04/05/16 17:59 36.6 54 16 104/66 98 Nasal Cannula 2.0 04/05/16 17:34 51 19 04/05/16 17:34 51 19 99 04/05/16 17:33 145/121 04/05/16 17:31 121/68 04/05/16 17:29 64 20 04/05/16 17:29 65 20 99 04/05/16 17:24 68 19 04/05/16 17:24 68 19 100 04/05/16 17:23 126/69 04/05/16 17:19 63 13 100 04/05/16 17:19 63 13 04/05/16 17:18 126/72 04/05/16 17:14 60 18 100 04/05/16 17:14 60 18 04/05/16 17:13 123/71 04/05/16 17:12 36.5 60 18 123/71 100 Nasal Cannula 2 04/05/16 17:10 56 14 100 04/05/16 17:10 55 14 2/14/17 17:08 125/74 17 17:05 63 16 99 04/05/17 17:05 62 16 17 17:03 140/81 17 17:00 63 20 100 17 17:00 64 20 14/17 16:58 120/78 04/05/17 16:55 57 13 04/05/17 16:55 57 13 100 04/05/16 16:54 58 17 100 17 16:54 58 17 17 16:54 58 17 04/05/17 16:54 58 17 100 04/05/ 16:53 124/70 04/05/17 16:53 124/70 17 16:49 55 15 100 17 16:49 55 15 100 17 16:49 56 15 04/05/16 16:49 56 15 04/05/ 16:48 139/77 04/05/16 16:48 139/77 04/05/16 16:44 61 14 17 16:44 61 14 100 04/05/17 16:44 61 14 100 04/05/16 16:44 61 14 04/05/17 16:43 130/78 17 16:43 130/78 04/05/17 16:39 58 14 04/05/17 16:39 58 14 100 14/17 16:39 58 14 04/05/17 16:39 58 14 100 04/05/17 16:38 125/77 04/05/17 16:38 125/77 17 16:34 58 17 100 17 16:34 59 17 14/17 16:34 58 17 100 04/05/17 16:34 59 17 14/17 16:33 128/77 14/17 16:33 128/77 14/17 16:29 60 5 14/17 16:29 60 5 14/17 16:29 59 5 99 14/17 16:29 36.3 77 10 132/87 100 Nasal Cannula 2 14/17 16:29 59 5 99 14/17 14:06 36.8 62 16 102/68 98 Room Air General Appearance: WD/WN, no apparent distress Head: normocephalic, atraumatic Respiratory/Chest: no respiratory distress, no accessory muscle use Abdomen: non distended, soft, no organomegaly, no pulsatile mass, + tenderness (expected post-op) Incision(s): clean, dry, intact Extremities: normal range of motion Laboratory Results: Results Past 24 Hours Test 04/05/16 22:08 Range/Units Assessment & Plan POD # 1 s/p Laparoscopic Cholecystectomy - Vital signs stable - pre-operative pain resolved, post-op pain controlled with IV morphine - no nausea or vomiting - ambulating and urinating without difficulty - tolerated some full liquids last evening Plan: D/C IV cefoxitin D/C iv morphine Start PO Ibuprofen prn pain Plan on discharge early afternoon after patient eats breakfast Will follow-up with Dr. Weiss in 2 weeks.
--- NOTE | 2016-04-06 11:27 | Discharge Summary ---
Discharge Summary Dates Admission Date / Time: Apr 04, 2016 at 12:38 Discharge Date: Apr 06, 2016 Dispostion / Condition Discharge Disposition: Home Condition at Discharge: Good Principal Diagnosis (1) S/P laparoscopic cholecystectomy (2) Acute cholecystitis (3) Cholelithiasis Consultations / Procedures Consultations: none Procedures: LAPAROSCOPIC CHOLECYSTECTOMY Pending Studies / Follow-Up None Medication Reconciliation Continued Medications: Aspirin (Aspirin Ec) 81 Mg Tab 81 MG PO DAILY Cyanocobalamin (Vitamin B-12) 100 Mcg Tab 100 MCG PO DAILY, TAB Folic Acid (Folvite) 1 Mg Tab 1 MG PO DAILY, TAB Ibuprofen (Motrin) 600 Mg Tab 600 MG PO Q4 PRN for Pain, TAB TAKE WITH FOOD Multiple Vitamin (Multivitamin) 1 Tab Tab 1 TAB PO DAILY, TAB Admission HPI Per the Admitting provider: Kandace presented to [facility] emergency department early this morning with complaint of right upper abdominal pain and difficulty breathing. States the pain started at 3 am this morning and by 5 am she was unable to take a deep breath because of the pain. Denies of any previous similar episodes of pain. Denies of any radiation of pain. Denies of any history of similar abdominal pain or issues with her gallbladder. Denies of any fever, chills, nausea, vomiting, or diarrhea. She had labs including cbc, bmp, and lfts. NO leukocytosis and LFTS and bilirubin within normal limits. She has a history of DVT about 5 years ago and recent left leg vein stripping procedure last week. She had a CT angiography of the chest which showed probable gallbladder wall distention and wall thickening. She then underwent an ultrasound which showed no gallbladder wall thickening, pericholecystic fluid, or signs of acute cholecystitis however she did have gallstones present. Admission Exam Per the Admitting provider: General Appearance: WD/WN, no apparent distress Head: normocephalic, atraumatic Eyes: normal inspection, sclerae normal ENT: hearing grossly normal Neck: supple, no adenopathy Respiratory/Chest: chest non-tender, lungs clear, normal breath sounds, no respiratory distress, no accessory muscle use Cardiovascular: regular rate, rhythm, no edema, no murmur Abdomen/GI: soft, no organomegaly, + tenderness (RUQ, positive duran's sign ), + guarding (RUQ) Back: normal inspection, no CVA tenderness, no muscle spasm Extremities/Musculoskelatal: normal inspection Neurologic/Psych: alert, normal mood/affect, oriented x 3 Skin: normal color, warm/dry, no rash Hospital Course (1) Acute cholecystitis Patient was admitted to the med/surg floor under observation given her RUQ abdominal pain. She was started on IV Cefoxitin, IV fluids, clear liquid diet, IV pain medication, and IV Zofran. She was evaluated the following morning in which her abdominal pain did not improve and was persistent even with Morphine. Her cbc, bmp, lfts, were completely within normal limits however examination showed positive Duran's sign and pain increased after eating clear liquids. It was decided to proceed with laparoscopic cholecystectomy while she was an inpatient. She underwent laparoscopic Cholecystectomy midafternoon on 12//17 and tolerated the procedure well without any complications. She was transferred back to [facility]/surg floor post-operatively. POD # 1 she was evaluated and had some mild abdominal pain but pre-operative pain had resolved. Tolerated some clear liquids the evening of surgery. Urinated without difficulty and ambulated hallway. She was discharged home on POD # 1 in stable condition. Overall, hospital course was uneventful. (2) Cholelithiasis Refer to above (3) RUQ abdominal pain refer to above Total Time Total Time Spent (min): 30 Total Time Includes: examination of the patient, discharge planning, medication reconciliation Discharge Instructions As given to patient Copies To Primary Care Provider: Irma Early PA-C.
[2016-04-06 12:18] VITALS: BP 90/56; PULSE 52; TEMP 36.7; O2SAT 96
== END 2016-04-06 12:47 | disposition home or self-care (01) ==
LOC: ENRESERVDT → ENRESERVTM → C.EDB 05:48 → C.MSW 12:38
PROVIDERS: ADMIT Surgery; ATTEND Surgery
DX: K80.12 Calculus of gallbladder with acute and chronic cholecystitis without obstruction (principal); Z86.718 Personal history of other venous thrombosis and embolism; Z87.891 Personal history of nicotine dependence; Z79.82 Long term (current) use of aspirin